=== PATIENT | female | born 1975 | race Caucasian/White ===

== ENCOUNTER 2024-03-21 20:03 | Emergency (ER) | payer SELFPAY ==
[~2024-03-21] VITALS: Ht 165.1 cm; Wt 91.0 kg
[2024-03-21 20:26] VITALS: BP 128/86; PULSE 113; RESP 16; TEMP 98.3; O2SAT 100
== END 2024-03-21 20:30 | disposition left against medical advice (07) ==
LOC: ER 20:03
DX: R46.89 Other symptoms and signs involving appearance and behavior (principal); Z53.21 Procedure and treatment not carried out due to patient leaving prior to being seen by health care provider